=== PATIENT | female | born 1985 | race Caucasian/White ===

== ENCOUNTER 2021-12-11 14:50 | Outpatient (CLI) | payer BC, SELFPAY ==
[2021-12-11] VITALS (8 sets, daily range): BP systolic 122–141; BP diastolic 67–73; PULSE 63–73; BMI 31.1
[2021-12-11 15:46] LABS: Basophils Percent Auto 0.3 % (0.2-1.2); Eosinophils Absolute Auto 0.1 K/mm3 (0-0.3); Eosinophils Percent Auto 0.8 % (0-4.4); Hematocrit 38.1 % (37.0-47.0); Hemoglobin 12.6 g/dL (12.0-15.0); Immature Granulocyte Absolute 0.02 K/mm3 (0.00-0.031); Immature Granulocyte Percent A 0.3 % (0-0.5); Lymphocytes Absolute Auto 1.49 K/mm3 (0.9-3.2); Lymphocytes Percent Auto 19.2 % (18.3-44.2); Mean Corpuscular HGB Conc 33.1 g/dl (32-36); Mean Corpuscular Hemoglobin 29.2 pg (26-34); Mean Corpuscular Volume 88.4 fl (80-100); Mean Platelet Volume 11.2 fl (7.4-10.4); Monocytes Absolute Auto 0.7 K/mm3 (0.1-0.6); Monocytes Percent Auto 9.3 % (2.6-8.5); Neutrophils Absolute Auto 5.5 K/mm3 (1.3-6.7); Neutrophils Percent Auto 70.1 % (45.5-73.1); Platelet Count Result 166 k/mm3 (150-375); Red Blood Count 4.31 M/mm3 (4.2-5.4); Red Cell Distribution Width 13.5 % (11.5-14.5); White Blood Count 7.8 K/mm3 (4.5-10.0)
[2021-12-11 15:55] LABS: Alanine Aminotransferase 30 U/L (6-35); Albumin Level 3.5 g/dL (3.5-5.1); Alkaline Phosphatase 138 U/L (38-126); Anion Gap 11 mmol/L (8-16); Aspartate Amino Transferase 33 U/L (14-36); Bilirubin,Total 0.1 mg/dL (0.2-1.3); Blood Urea Nitrogen 9 mg/dL (7-17); Carbon Dioxide 23 mmol/L (22-30); Chloride 102 mmol/L (98-107); Estimated CRCL calculation 125 ml/min; Estimated Glomerular Filt Rate > 60; Glucose 114 mg/dL (65-110); Potassium 4.1 mmol/L (3.4-5.0); Sodium 136 mmol/L (137-145); Uric Acid 5.8 mg/dL (2.5-7.5)
[2021-12-11 16:02] LABS: Add Urine Microscopic? YES; Appearance Urine Cloudy (Clear); Bacteria Urine 2+ /hpf; Bilirubin Urine Negative (Negative); Blood Urine 2+ (Negative); Color Urine Straw (Yellow); Glucose Urine UA Negative (Negative); Ketones Urine Negative (Negative); Leukocyte Esterase Ur Trace LEU/UL (Negative); Nitrate Urine Negative (Negative); Protein Urine Negative (Negative); RBC Urine 0-2 /hpf (0-2); Specific Grav Ur 1.005 (1.001-1.035); Squamous Epithelial Cell Urine Few /hpf (Few); Urobilinogen Urine Negative mg/dL (<2.0)
[2021-12-11 16:04] LABS: Creatinine Urine 27.5 mg/dL; Total Protein Urine Random 14 mg/dL; Ur Ttl Prot Creatinine Ratio 0.51 mg/mg (0-0.20)
--- NOTE | 2021-12-11 16:32 | PC.NURSE ---
[facility] CNM informed of BP's, lab results, and reactive NST. CNM offered pt to stay for induction of labor, but she declines. Order received for discharge and pt to do 24 hr urine at home.
== END 2021-12-11 16:55 | disposition home or self-care (01) ==
LOC: ANHOBOP 14:55 → ANHOBPP 14:55
PROVIDERS: Advanced Practice Midwife; PCP Hospitalist; Visit Provider Obstetrics & Gynecology
DX: O13.9 Gestational [pregnancy-induced] hypertension without significant proteinuria, unspecified trimester (principal); Z3A.00 Weeks of gestation of pregnancy not specified
CPT/HCPCS: 36415; 59025; 80053; 81001; 82570; 84156; 84550; 85025; 99199

== ENCOUNTER 2021-12-12 17:14 | Outpatient (CLI) | payer BC, SELFPAY ==
[2021-12-12 17:14] VITALS: BMI 31.3
[2021-12-12 17:58] LABS: Collection Time Urine 24 HOURS
[2021-12-12 18:03] LABS: Total Volume 24 Hour Urine 1950 ml
[2021-12-12 18:06] LABS: Patient Weight 194 Lbs; Total Volume 24 Hour Urine 1950 ml
[2021-12-12 18:20] LABS: Total Protein Urine 24 Hr 234 mg/24hr (28-141); Total Protein Urine Random 12 mg/dL
[2021-12-12 18:21] LABS: Creatinine Clearance Urine 148.8 ml/min (75-125)
== END 2021-12-12 17:15 | disposition home or self-care (01) ==
LOC: ANHOBOP 17:19
PROVIDERS: Advanced Practice Midwife; PCP Hospitalist; Visit Provider Obstetrics & Gynecology
DX: Z34.90 Encounter for supervision of normal pregnancy, unspecified, unspecified trimester (principal); Z3A.00 Weeks of gestation of pregnancy not specified
CPT/HCPCS: 81050; 82575; 84156

== ENCOUNTER 2021-12-20 06:38 | Inpatient (IN) | payer BC, SELFPAY ==
[2021-12-20] VITALS (24 sets, daily range): BP systolic 93–162; BP diastolic 49–93; PULSE 64–101; RESP 16–18; TEMP 36.6–37.2; O2SAT 99–100; BMI 30.9
--- OUTSIDE RECORDS SUMMARY | 2021-12-20 06:42 | XMS_ITS | Encounter Summary ---
:1985 Author Reason for Visit OB visit Assessment and Plan Assessment Note Patient is ___weeks . Discussed plan. 1. Routine care Discussion Note: None recorded.Patient educational handouts: No information available. Plan of Care Reminders Provider Appointments None recorded. ? ? Lab None recorded. ? ? Referral None recorded. ? ? Procedures None recorded. ? ? Surgeries None recorded. ? ? Imaging None recorded. ? ? Medications Name Start Date ? ? amoxicillin 875 mg-potassium clavulanate 125 mg tablet ? TAKE 1 TABLET BY MOUTH TWICE DAILY FOR 7 DAYS BinaxNOW COVID-19 Ag Self Test kit ? FreeStyle Lancets 28 gauge ? FreeStyle Lite Strips ? Use to check blood sugar 4 time daily ? Zyrtec ? Medications Administered None recorded. Vitals Height Weight BMI Blood Pressure 5 ft 5 in 191 lbs 31.8 kg/m2 138/84 mm[Hg] Results Lab Results None recorded. Allergies Code Code System Name Reaction Severity Onset Sulfa (Sulfonamide Antibiotics) ? ? ? Problems Name Status Onset Date Source ? Gestational Diabetes Mellitus Active 05/08/2017 Hi story Active 06/06/2021 ? 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 History of Gestational Diabetes Mellitus Active ? ? History of Premature Delivery Active ? ? Procedures Date Name Performed by ? 12/04/2021 , Obstetric, Follow-up [place]
--- OUTSIDE RECORDS SUMMARY | 2021-12-20 06:42 | XMS_ITS ---
:1985 Author Care Team Providers Name Role Phone Kurtis Reyez Primary Care Provider Unavailable Allergies Code Code System Name Reaction Severity Status Onset Sulfa (Sulfonamide Antibiotics) ? ? Active ? Medications Name Status Start Date Stop Date ? ? amoxicillin 875 mg-potassium clavulanate 125 mg tablet Active ? Not available TAKE 1 TABLET BY MOUTH TWICE DAILY FOR 7 DAYS BinaxNOW COVID-19 Ag Self Test kit Active ? Not available Alia 0.35 mg tablet Completed 06/19/2017 04/06/2018 take 1 tablet by oral route every day Estarylla 0.25 mg-35 mcg tablet Completed ? 07/24/2020 take 1 tablet by oral route every day Fora [id number] strips-lancets 30 gauge combo pack Complete d 04/13/2017 04/06/2018 checking BS QID fasting and hour after breakfast, lunch & dinne r FreeStyle Lancets 28 gauge Active ? Not a vailable FreeStyle Lite Strips Active ? Not availa ble Macrobid 100 mg capsule Completed 05/14/2017 04/06/19 19 take 1 capsule by oral route every 12 hours with food Sultana (PF) 275 mg/1.1 mL subcutaneous auto-injector Completed ? 12/11/2021 INJECT 1.1 ML UNDER THE SKIN EACH WEEK (EVERY 7 DAYS) Active ? Not available 28 mg iron-800 mcg tablet Completed ? 04/12/2019 spironolactone Completed ? 05/09/2021 spironolactone 100 mg tablet Completed ? TAKE 1 TABLET BY MOUTH DAILY spironolactone 25 mg tablet Completed ? 10/18 take 1 tablet by oral route every day spironolactone 50 mg tablet Completed ? 04/17 Tri-Sprintec (28) 0.18 mg(7)/0.215 mg(7)/0.25 mg(7)-35 mcg table t Completed ? 05/09/2021 TAKE 1 TABLET BY MOUTH EVERY DAY
--- OUTSIDE RECORDS SUMMARY | 2021-12-20 06:42 | XMS_ITS | Encounter Summary ---
[...] BMI Blood Pressure 5 ft 5 in 192 lbs 32 kg/m2 132/77 mm[Hg] Results Lab Results None recorded. Allergies [...] Performed by ? 12/04/2021 , Obstetric, Follow-up [place]
--- OUTSIDE RECORDS SUMMARY | 2021-12-20 06:42 | XMS_ITS | Encounter Summary ---
:1985 Author Reason for Visit None recorded. Assessment and Plan 1. Post-term of 40 to 42 week s ? US, obstetric, biophysical profile Discussion Note: None recorded.Patient educational handouts: No information available. Plan of Care Reminders Provider Appointments None recorded. ? ? Lab None recorded. ? ? Referral None recorded. ? ? Procedures None recorded. ? ? Surgeries None recorded. ? ? Imaging US, Obstetric, Biophysical Profile 12/16/2021 [place] Medications Name Start Date ? ? amoxicillin 875 mg-potassium clavulanate 125 mg tablet ? TAKE 1 TABLET BY MOUTH TWICE DAILY FOR 7 DAYS BinaxNOW COVID-19 Ag Self Test kit ? FreeStyle Lancets 28 gauge ? FreeStyle Lite Strips ? Use to check blood sugar 4 time daily ? Zyrtec ? Medications Administered None recorded. Vitals None recorded. Results Lab Results None recorded. Allergies Code Code System Name Reaction Severity Onset Sulfa (Sulfonamide Antibiotics) ? ? ? Problems Name Status Onset Date Source ? Gestational Diabetes Mellitus Active 05/08/2017 Hi story Active 06/06/2021 ? 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 History of Gestational Diabetes Mellitus Active ? ? History of Premature Delivery Active ? ? Procedures Date Name Performed by ? 12/04/2021 US, Obstetric, Follow-up [place] [address] [place] [address]
--- OUTSIDE RECORDS SUMMARY | 2021-12-20 06:43 | XMS_ITS | Encounter Summary ---
:1985 Author Reason for Visit OB visit OB [id number] EDC 12/13/2021 LMP 03/08/2021 Assessment and Plan Assessment Note Patient is _39__weeks . Discuss ed plan. 1. Routine care Discussion Note: None [...] BMI Blood Pressure 5 ft 5 in 193 lbs 32.1 kg/m2 (1) 148/79 mm[H g] (2) 150/88 mm[Hg ] Results Lab Results None recorded. Allergies Code [...]
--- OUTSIDE RECORDS SUMMARY | 2021-12-20 06:43 | XMS_ITS | Encounter Summary ---
:1985 Author Reason for Visit None recorded. Assessment and Plan 1. Gestational diabetes mellitus, class A>1< ? non-stress test Discussion Note: None recorded.Patient educational handouts: No information available. Plan of Care Reminders Provider Appointments None recorded. ? ? Lab None recorded. ? ? Referral None recorded. ? ? Procedures None recorded. ? ? Surgeries None recorded. ? ? Imaging Non-stress Test 12/16/2021 [place] Medications Name Start Date ? ? amoxicillin [...] Performed by ? 12/04/2021 US, Obstetric, Follow-up [place] [address] [place] [address]
--- OUTSIDE RECORDS SUMMARY | 2021-12-20 06:43 | XMS_ITS | Encounter Summary ---
:1985 Author Reason for Visit OB visit Assessment and Plan 1. Gestational diabetes mellitus 2. History of premature delivery Discussion Note: None recorded.Patient educational handouts: No [...] BMI Blood Pressure 5 ft 5 in 186 lbs 31 kg/m2 119/71 mm[Hg] Results Lab Results None recorded. Allergies Code Code System Name Reaction Severity Onset Sulfa (Sulfonamide Antibiotics) ? ? ? Problems Name Status Onset Date Source ? Gestational Diabetes Mellitus Active 05/08/2017 Hi story Active 06/06/2021 ? 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 History of Gestational Diabetes Mellitus Active ? ? History of Premature Delivery Active ? ? Procedures Date Name Performed by ? 10/03/2021 , Obstetric, Follow-up [place] [address] [address]
--- OUTSIDE RECORDS SUMMARY | 2021-12-20 06:43 | XMS_ITS | Encounter Summary ---
[...] BMI Blood Pressure 5 ft 5 in 190 lbs 31.6 kg/m2 127/69 mm[Hg] Results Lab Results None recorded. Allergies Code Code System Name Reaction Severity Onset Sulfa (Sulfonamide Antibiotics) ? ? ? Problems Name Status Onset Date Source ? Gestational Diabetes Mellitus Active 05/08/2017 Hi story Active 06/06/2021 ? 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 History of Gestational Diabetes Mellitus Active ? ? History of Premature Delivery Active ? ? Procedures Date Name Performed by ? 10/30/2021 , Obstetric, Follow-up [place]
--- OUTSIDE RECORDS SUMMARY | 2021-12-20 06:43 | XMS_ITS | Encounter Summary ---
:1985 Author Reason for Visit None recorded. Assessment and Plan 1. -induced hypertension Pt here for BP check per SP. BP is 136/ 78. Pt informed PIH labs were WNL. No PIH sxs. +FM. Pt c/o sinus pressure/viral il lness and a LE from this, but LE is relieved with OTC medications. Pts daughter has a viral illness and has a cold so told pt LE could be r/t this, but if LE does not resolve with OTC medication to go in for eval. Told pt to monitor for visual lambert ges, RUQ pain, epigastric pain, or sudden swelling in hands/face and if she has an y of these sxs to call or go to L&D for eval. Pt to keep f/u appt next week. Pt verbal ized understanding. Reviewed with SP and okay with plan since labs were WNL. ADRIENNE richey Discussion Note: None recorded.Patient educational handouts: No [...] ? Medications Administered None recorded. Vitals Height Blood Pressure 5 ft 5 in 136/78 mm[Hg] Results Lab Results None recorded. Allergies Code Code System Name Reaction Severity Onset
--- OUTSIDE RECORDS SUMMARY | 2021-12-20 06:43 | XMS_ITS | Encounter Summary ---
:1985 Author Reason for Visit OB visit OB [id number] EDC 12/13/2021 LMP and sera injection given into right Arm lot [id number] Exp 10/2022 Assessment and Plan Assessment Note Patient is _33__weeks . Discuss ed plan. 1. History of premature delivery ? Sera (PF) 275 mg/1.1 mL subcutaneou s auto-injector 2. Routine care Discussion Note: None recorded.Patient educational [...] time daily ? Zyrtec ? Medications Administered Name Date ? ? [place] (PF) 275 mg/1.1 mL subcutaneous auto-injector [id number]:28:54 Inject 1.1 mL every week by subcutaneous route as dire cted. Vitals Height Weight BMI Blood Pressure 5 ft 5 in 185 lbs 30.8 kg/m2 124/78 mm[Hg] Results Lab Results None recorded. Allergies Code Code System Name Reaction Severity Onset Sulfa (Sulfonamide Antibiotics) ? ? ? Problems Name Status Onset Date Source ? Gestational Maya
--- OUTSIDE RECORDS SUMMARY | 2021-12-20 06:43 | XMS_ITS | Encounter Summary ---
:1985 Author Reason for Visit OB visit Assessment and Plan Assessment Note Patient is ___weeks . Discussed plan. 1. History of premature delivery ? Veronica (PF) 275 mg/1.1 mL subcutaneou s auto-injector Discussion Note: None recorded.Patient educational handouts: No [...] ? Medications Administered Name Date ? ? Veronica (PF) 275 mg/1.1 mL subcutaneous auto-injector [id number]:48:45 INJECT 1.1 ML UNDER THE SKIN EACH WEEK (EVERY 7 DAYS) Vitals Height Weight BMI Blood Pressure 5 ft 5 in 189 lbs 31.5 kg/m2 111/69 mm[Hg] Results Lab Results None recorded. Allergies Code Code System Name Reaction Severity Onset Sulfa (Sulfonamide Antibiotics) ? ? ? Problems Name Status Onset Date Source ? Gestational Diabetes Mellitus Active 05/08/2017 Hi story Active 06/06/2021 ? 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
--- OUTSIDE RECORDS SUMMARY | 2021-12-20 06:43 | XMS_ITS | Encounter Summary ---
[...] BMI Blood Pressure 5 ft 5 in 184 lbs 30.6 kg/m2 116/67 mm[Hg] Results Lab Results None recorded. Allergies Code Code System Name Reaction Severity Onset Sulfa (Sulfonamide Antibiotics) ? ? ? Problems Name Status Onset Date Source ? Gestational Diabetes Mellitus Active 05/08/2017 Hi story Active 06/06/2021 ? 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 History of Gestational Diabetes Mellitus Active ? ? History of Premature Delivery Active ? ? Procedures Date Name Performed by ? 09/05/2021 , Obstetric, Follow-up [place]
--- OUTSIDE RECORDS SUMMARY | 2021-12-20 06:43 | XMS_ITS | Encounter Summary ---
:1985 Author Reason for Visit OB visit OB [id number] EDC 12/13/2021 LMP 03/08/2021 Assessment and Plan Assessment Note Patient is _38__weeks . Discuss ed plan. 1. Routine care 2. -induced hypertension ? CBC w/ auto diff ? CMP, serum or plasma ? uric acid, serum or plasma ? protein:creatinine ratio, urine Discussion Note: None recorded.Patient educational handouts: No information available. Plan of Care Reminders Provider Appointments None recorded. ? ? Lab CBC W/ Auto Diff 12/04/2021 [facility] (Lab) ? CMP, Serum or Plasma 12/04/2021 [facility] (Lab) ? Uric Acid, Serum or Plasma 12/04/2021 [facility] (Lab) ? Protein:creatinine Ratio, 12/04/2021 [facility] Urine (Lab) Referral None recorded. ? ? Procedures None [...] BMI Blood Pressure 5 ft 5 in 193.2 lbs 32.1 kg/m2 (1) 149/83 mm[H g]
--- OUTSIDE RECORDS SUMMARY | 2021-12-20 06:43 | XMS_ITS | Encounter Summary ---
:1985 Author Reason for Visit None recorded. Assessment and Plan 1. Gestational diabetes mellitus, class A>1< ? US, obstetric, follow-up Discussion Note: None recorded.Patient educational handouts: No information available. Plan of Care Reminders Provider Appointments None recorded. ? ? Lab None recorded. ? ? Referral None recorded. ? ? Procedures None recorded. ? ? Surgeries None recorded. ? ? Imaging US, Obstetric, Follow-up 12/04/2021 [place] Medications Name Start Date ? ? amoxicillin [...] Performed by ? 12/04/2021 US, Obstetric, Follow-up [place] [address] [place] [address]
--- OUTSIDE RECORDS SUMMARY | 2021-12-20 06:43 | XMS_ITS | Encounter Summary ---
:1985 Author Reason for Visit OB visit; blood pressure Assessment and Plan Assessment Note Patient is [...] 5 in 193 lbs 32.1 kg/m2 (1) 151/77 mm[H g] (2) 140/80 mm[Hg ] Results Lab Results None recorded. [...]
--- OUTSIDE RECORDS SUMMARY | 2021-12-20 06:43 | XMS_ITS | Encounter Summary ---
:1985 Author Reason for Visit OB visit OB [id number] EDC 12/13/2021 LMP 03/08/2021 Assessment and Plan 1. Routine care Discussion Note: None recorded.Patient [...] ft 5 in 193 lbs 32.1 kg/m2 130/75 mm[Hg] Results Lab Results None recorded. Allergies [...] Performed by ? 10/30/2021 , Obstetric, Follow-up [place] [address]
--- OUTSIDE RECORDS SUMMARY | 2021-12-20 06:43 | XMS_ITS | Encounter Summary ---
[...] recorded. ? ? Imaging US, Obstetric, Follow-up 10/30/2021 [place] Medications Name Start Date ? [...] Procedures Date Name Performed by ? 10/03/2021 US, Obstetric, Follow-up [place] [address] [place] [address]
--- OUTSIDE RECORDS SUMMARY | 2021-12-20 06:43 | XMS_ITS | Encounter Summary ---
[...] ft 5 in 185 lbs 30.8 kg/m2 111/69 mm[Hg] Results Lab Results None [...] Performed by ? 09/05/2021 , Obstetric, Follow-up [place]
--- OUTSIDE RECORDS SUMMARY | 2021-12-20 06:43 | XMS_ITS | Encounter Summary ---
:1985 Author Reason for Visit None recorded. Assessment and Plan 1. Placenta circumvallata ? US, obstetric, follow-up Discussion Note: None recorded.Patient educational handouts: No information available. Plan of Care Reminders Provider Appointments None recorded. ? ? Lab None recorded. ? ? Referral None recorded. ? ? Procedures None recorded. ? ? Surgeries None recorded. ? ? Imaging US, Obstetric, Follow-up 10/03/2021 [place] Medications Name Start Date ? [...] Procedures Date Name Performed by ? 09/05/2021 US, Obstetric, Follow-up [place] [address] [place] [address] (
[2021-12-20 07:42] LABS: Basophils Percent Auto 0.3 % (0.2-1.2); Eosinophils Absolute Auto 0.1 K/mm3 (0-0.3); Eosinophils Percent Auto 0.8 % (0-4.4); Hematocrit 41.6 % (37.0-47.0); Hemoglobin 13.8 g/dL (12.0-15.0); Immature Granulocyte Absolute 0.04 K/mm3 (0.00-0.031); Immature Granulocyte Percent A 0.4 % (0-0.5); Lymphocytes Absolute Auto 1.24 K/mm3 (0.9-3.2); Lymphocytes Percent Auto 12.9 % (18.3-44.2); Mean Corpuscular HGB Conc 33.2 g/dl (32-36); Mean Corpuscular Hemoglobin 29.3 pg (26-34); Mean Corpuscular Volume 88.3 fl (80-100); Mean Platelet Volume 11.6 fl (7.4-10.4); Monocytes Absolute Auto 0.8 K/mm3 (0.1-0.6); Monocytes Percent Auto 7.8 % (2.6-8.5); Neutrophils Absolute Auto 7.5 K/mm3 (1.3-6.7); Neutrophils Percent Auto 77.8 % (45.5-73.1); Platelet Count Result 185 k/mm3 (150-375); Red Blood Count 4.71 M/mm3 (4.2-5.4); Red Cell Distribution Width 13.3 % (11.5-14.5); White Blood Count 9.6 K/mm3 (4.5-10.0)
[2021-12-20 08:01] LABS: Glucose Point of Care 95 mg/dl (65-105)
--- NOTE | 2021-12-20 08:20 | WPDHPUPDATE1 ---
History and Physical Update Update Date/Time: 12/20/21 08:20 36-year-old multiparous female 40 weeks 6/7 Emily presents for induction of labor. She consents only ruptured of min rupture of membranes at this time. Her fluid is clear, her exam was 4 cm- 80%-minus 2. Could have intermittent monitoring. Expectant management going forward. She would like to avoid an epidural. History and Physical has been reviewed, including an updated exam of the patient. There are NO changes in the patient's condition. Risks, benefits, and alternatives have been discussed and questions answered. Patient agrees to proceed with procedure.
--- NOTE | 2021-12-20 10:29 | WPDANESEPP ---
Anes - Eval Pre Procedure Procedure: Labor Epidural Date/Time: 12/20/21 10:29 Surgeon: Aissatou Preop Diagnosis: Labor Pain Pre Op Diagnosis: IOL Patient Data Age: 36 Gender: F Height: 1.68 m Weight: 87 kg Last Vital Signs Pulse 64 12/20/21 10:18 BP 108/56 L 12/20/21 10:18 O2 Del Method Room Air 12/20/21 07:50 Allergies Allergy/AdvReac Type Severity Reaction Status Date / Time Sulfa (Sulfonamide Allergy Unknown Hives Verified 12/11/21 15:44 Antibiotics) Home Medications Medication Instructions Recorded Confirmed Type famotidine 20 mg tablet (Pepcid) 20 mg PO DAILY PRN Acid Reflux 11/16/21 12/20/21 History loratadine 10 mg tablet (Claritin) 10 mg PO DAILY PRN Allergy Symptoms 11/16/21 12/11/21 History prenat.vits,roger,oyd-bbze-ybqkf 1 tablet PO HS 11/16/21 12/11/21 History amoxicillin 875 mg-potassium 1 tablet PO Q12H 12/20/21 12/20/21 History clavulanate 125 mg tablet Laboratory Tests 12/20/21 12/20/21 12/20/21 07:14 07:14 07:14 WBC 9.6 K/mm3 K/mm3 (4.5-10.0) RBC 4.71 M/mm3 M/mm3 (4.2-5.4) Hgb 13.8 g/dL g/dL (12.0-15.0) Hct 41.6 % % (37.0-47.0) MCV 88.3 fl fl (80-100) MCH 29.3 pg pg (26-34) MCHC 33.2 g/dl g/dl (32-36) RDW 13.3 % % (11.5-14.5) Plt Count 185 k/mm3 k/mm3 (150-375) MPV 11.6 fl H fl (7.4-10.4) Immature Gran % (Auto) 0.4 % % (0-0.5) Neut % (Auto) 77.8 % H % (45.5-73.1) Lymph % (Auto) 12.9 % L % (18.3-44.2) [place] % (Auto) 7.8 % % (2.6-8.5) Eos % (Auto) 0.8 % % (0-4.4) Baso % (Auto) 0.3 % % (0.2-1.2) Lymph # (Auto) 1.24 K/mm3 K/mm3 (0.9-3.2) [place] # (Auto) 0.8 K/mm3 H K/mm3 (0.1-0.6) Eos # (Auto) 0.1 K/mm3 K/mm3 (0-0.3) Baso # (Auto) 0.0 K/mm3 K/mm3 (0.0-0.1) Abs Immat Gran (auto) 0.04 K/mm3 H K/mm3 (0.00-0.031) Absolute Neuts (auto) 7.5 K/mm3 H K/mm3 (1.3-6.7) Absolute Nucleated RBC 0.0 K/mm3 K/mm3 (0.0-0.012) Nucleated RBC % 0.0 % % (0.0-0.2) POC Capillary Glucose RPR Pending Blood Type AB Positive Antibody Screen Negative 12/20/21 07:45 WBC RBC Hgb Hct MCV MCH MCHC RDW Plt Count MPV Immature Gran % (Auto) Neut % (Auto) Lymph % (Auto) [place] % (Auto) Eos % (Auto) Baso % (Auto) Lymph # (Auto) [place] # (Auto) Eos # (Auto) Baso # (Auto) Abs Immat Gran (auto) Absolute Neuts (auto) Absolute Nucleated RBC Nucleated RBC % POC Capillary Glucose 95 mg/dl mg/dl (65-105) RPR Blood Type Antibody Screen Patient hx anesthesia problems: none Family hx anesthesia problems: none Results Review: All pre-operative results and documents have been reviewed as part of the pre-operative evaluation. [facility] Family History Family History Grandparent Diabetes mellitus Malignant neoplasm of prostate Grandparent Diabetes mellitus Social History Social History Smoking status: Never smoker Substance use: never Spiritual care concerns: No Exam Day of Procedure 12/20/21 10:29 Patient weight: obese Heart: regular rate and rhythm Lungs: clear to auscultation Airway: Mallampati scale class II Neurological: alert and oriented
--- NOTE | 2021-12-20 12:01 | PM.OBPRVD ---
OB - Delivery Note Procedure Procedure: Induction method: AROM Delivery monitor: External FHT and External Uterine Route of delivery: Laceration Description: Perineal - 2nd Degree Delivery repair: vicryl Anesthesia type: None Complications: none Baby Date of : 12/20/21 Weeks of gestation at delivery: 40 gender: Male Weight (pounds): 7 Weight (ounces): 2 score one minute: 8 score five minutes: 9
[2021-12-20] MEDS: OXYTOCIN 30 UNITS/NS 500 ML 30 UNITS/500 ML BAG 999 UNITS IV CONT (12:21)
--- NOTE | 2021-12-20 14:28 | OBPPTRN ---
Patient transferred to post room # 277 via wheelchair. Support person present. Oriented to unit, room, information board, rooming in, admission packet and security measures. Patient verbalizes understanding.
[2021-12-20] MEDS: IBUPROFEN 600 MG TABLET PO (19:02)
[2021-12-20] MEDS: MULTIVIT/MIN/PREN/FOL AC/IRON TABLET 1 TAB PO (19:03)
[2021-12-21 01:00] VITALS: BP 127/67; PULSE 76; RESP 16; TEMP 36.7; O2SAT 100
[2021-12-21 04:00] VITALS: BP 128/76; PULSE 75; RESP 18; TEMP 36.8; O2SAT 98
[2021-12-21] MEDS: IBUPROFEN 600 MG TABLET PO (04:15)
[2021-12-21 05:05] LABS: Hematocrit 35.1 % (37.0-47.0); Hemoglobin 11.8 g/dL (12.0-15.0)
--- NOTE | 2021-12-21 08:00 | PC.NURSE ---
PT introductions made and plan of care discussed per post , pain management, breast feeding, daily care activities. PT and spouse both received instructions this shift via one to one discussion, mom baby care guide and demonstrations. No barriers to learning identified at this time. PT verbalized understanding of such care.
[2021-12-21 09:30] VITALS: BP 124/62; PULSE 80; RESP 18; TEMP 36.9; O2SAT 100
[2021-12-21] MEDS: DOCUSATE SODIUM 100 MG CAPSULE PO (09:32)
--- NOTE | 2021-12-21 13:21 | PM.OBPNVD ---
OB - PN: Subj Subjective Date/time seen: 12/21/21 13:21 Patient comments: no complaints, pain well controlled, incisional pain, tolerating diet and flatus present OB - PN: Obj Data Labs CBC & Chem 7: 12/21/21 04:22 Labs: Laboratory Results - last 24 hr 12/21/21 04:22 Hgb 11.8 L Hct 35.1 L OB - PN A/P Plan day: 1 Plan: routine care Comments: No problems, routine care Time Spent With Patient Time: Total time spent is greater than 50% in coordination of care (as documented) at patient's floor/unit and/or counseling patient: Exam Const: General: comfortable, no acute distress and alert Resp: Effort & Inspection: normal respiratory effort Auscultation: no crackles, no rales and no rhonchi Cardio: Rate: regular rate Heart sounds: no click, no murmurs and no rubs GI: Inspection: non-distended GI Palp: No Tenderness to palpation present (GI) Auscultation: normal bowel sounds Other: Incision - CDI Extrem: General: normal to inspection, no pedal edema and no calf tenderness
[2021-12-21 21:00] VITALS: BP 134/75; PULSE 76; RESP 16; TEMP 36.9; O2SAT 99
--- NOTE | 2021-12-22 01:42 | PC.NURSE ---
Daylight Savings Time For Daylight Savings Time Ending in the Fall - Clocks are moved back. For [facility], the time of change occurs at 0200 hrs. Time is taken from the buffet server. This entry on the patient's chart recognizes the change in time reflected during documentation. Example: 2 entries for vital signs may be charted for 0200 hrs.
--- NOTE | 2021-12-22 08:08 | PM.OBDSVD ---
DS: Admitting Diagnosis Discharge Date 12/22/21 Admitting Diagnosis term OB - DS: Summary OB Procedures : None OB Procedures Intrapartum: Spontaneous Vag Delivery OB Procedures: : None Time Spent with Patient Time attestation: Total time spent providing and/or coordinating discharge services: Discharge Plan Discharge Discharging Clinician: Ilsa Reyez Patient Disposition: Home, Self-Care Activity: pelvic rest Diet: regular Patient Instructions: Antibiotic Form Stand Alone Forms: General Discharge Information Follow-up/Referrals: Ilsa Reyez MD [Physician] - Discharge Medications: Continued loratadine [Claritin] 10 mg Tablet 10 mg PO DAILY PRN (Reason: Allergy Symptoms) #2 Tablet 1 tablet PO HS famotidine [Pepcid] 20 mg Tablet 20 mg PO DAILY PRN (Reason: Acid Reflux) Discontinued amoxicillin-pot clavulanate [Augmentin] 875-125 mg Tablet 1 tablet PO Q12H Date of admission: 12/20/21 06:38 Primary Care Provider: KofiLj Admitting Provider: Ilsa Reyez Attending physician on admission: Ilsa Reyez Condition: Stable
[2021-12-22 08:30] VITALS: BP 132/79; PULSE 67; RESP 18; TEMP 37.2; O2SAT 100
[2021-12-22] MEDS: ACETAMINOPHEN 325 MG TABLET 650 MG PO (08:38)
[2021-12-22] MEDS: DOCUSATE SODIUM 100 MG CAPSULE PO (08:38)
--- NOTE | 2021-12-22 11:07 | PC.NURSE ---
Patient viewed the discharge video Mother & Baby Care, The First Two Weeks . Patient was given the opportunity and encouraged to ask questions. Patient verbalized understanding of information shared and has been given the mother/baby guide for home reference.
[2021-12-23 12:13] LABS: Rapid Plasma Reagin Non-Reactive (NonReactive)
[2021-12-24 08:47] VITALS: BP 130/68; PULSE 82; RESP 16; TEMP 36.8; O2SAT 100
== END 2021-12-22 11:40 | disposition home or self-care (01) | DRG 807 ==
LOC: ANHLDR 10:30 → ANHOB2 14:32
PROVIDERS: Admitting Provider Obstetrics & Gynecology; PCP Hospitalist; Visit Provider Obstetrics & Gynecology
DX: O24.429 Gestational diabetes mellitus in childbirth, unspecified control (principal); Z37.0 Single live birth; Z3A.41 41 weeks gestation of pregnancy; O70.1 Second degree perineal laceration during delivery
CPT/HCPCS: 36415; 82948; 85014; 85018; 85025; 86592; 86850; 86900; 86901; A9270; J2590